=== PATIENT | male | born 1965 | race Caucasian/White ===

== ENCOUNTER 2019-02-09 16:38 | Emergency (ER) | payer BC, OTHER ==
[~2019-02-09] VITALS: Ht 182.9 cm; Wt 145.1 kg
[~2019-02-09 16:38] MED LIST: DIAZ10TA PO; HYDR-1189 PO; SOM350 PO
[2019-02-09 16:44] VITALS: BP_SYST 177
--- NOTE | 2019-02-09 16:51 | NUR ---
Patient triaged and placed in waiting room. VSS and patient appears in no acute distress at this time. Accompanied by son, awaiting available bed, and MD notified of need for MSE.
--- NOTE | 2019-02-09 16:55 | NUR ---
Patient to ER bed 05 to gown for evaluation. Side rails up. Report given to BENJAMÍN Segovia
--- NOTE | 2019-02-09 17:35 | NUR ---
ER at bedside examining patient.
[2019-02-09] MEDS ORDERED: fentaNYL CITRATE/PF 100 MCG/2 ML AMP IM ONE (17:45)
[2019-02-09] MEDS ORDERED: KETOROLAC TROMETHAMINE 60 MG/2 ML VIAL IM ONE (17:45)
[2019-02-09] MEDS ORDERED: ONDANSETRON 4 MG ODT TAB PO ONE (19:00)
--- NOTE | 2019-02-09 19:00 | NUR ---
Patient presented to ER with c/o lower back pain. Patient A&Ox4, ambulatory to ER, skin pink, afebrile. Patient states pain started 3 weeks ago but has increased over the 3 weeks. Patient states he did not have intury or trauma to back, he states he has had hx of L5 fused. 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
--- NOTE | 2019-02-09 19:10 | NUR ---
Report given to Addison BUTTS
--- NOTE | 2019-02-09 19:10 | NUR ---
No needs verbalized at this time, NAD. Family member at bedside.
[2019-02-09 19:35] VITALS: BP_SYST 154
--- NOTE | 2019-02-09 19:35 | NUR ---
Patient given written and verbal discharge instructions and verbalizes understanding. ER MD discussed with patient the results and treatment provided. Patient in stable condition. ID arm band removed. Rx of Soma, Motrin, Prednisone, [place] given. Patient educated on pain management and to follow up with PMD. Pain Scale 2/10. Opportunity for questions provided and answered. Medication side effect fact sheet provided.
== END 2019-02-09 19:35 | disposition home or self-care (01) ==
LOC: SED 16:38
DX: G89.29 Other chronic pain (principal); M54.5 Low back pain; Z90.49 Acquired absence of other specified parts of digestive tract; Z90.89 Acquired absence of other organs; Z88.6 Allergy status to analgesic agent; Z79.899 Other long term (current) drug therapy
CPT/HCPCS: 72100; 96372; 99283; J1885; J3010; Q0162; J3410

== ENCOUNTER 2020-07-07 09:22 | Day surgery (SDC) | payer BC, SELFPAY ==
[~2020-07-07] VITALS: Ht 182.9 cm; Wt 136.1 kg
[2020-07-07] MEDS ORDERED: GLYCOPYRROLATE 0.2 MG/ML VIAL ONE (11:41)
[2020-07-07] MEDS ORDERED: SIMETHICONE 40 MG/0.6 ML ML ONE (11:41)
[2020-07-07] MEDS: MEPERIDINE HCL/PF 100 MG/ML AMP ONE ×3 (11:50→12:05)
[2020-07-07] MEDS: MIDAZOLAM HCL 5 MG/5 ML VIAL ONE ×3 (11:50→11:54)
[2020-07-07 12:25] VITALS: BP_SYST 129
== END 2020-07-07 13:25 | disposition home or self-care (01) ==
LOC: SDS 09:22 → SMU 09:28 → SDS 13:25
PROVIDERS: ATTEND Colon & Rectal Surgery
DX: Z12.11 Encounter for screening for malignant neoplasm of colon (principal); K29.80 Duodenitis without bleeding; Z98.0 Intestinal bypass and anastomosis status; Z88.1 Allergy status to other antibiotic agents; Z88.5 Allergy status to narcotic agent; Z98.890 Other specified postprocedural states; Z20.828 Contact with and (suspected) exposure to other viral communicable diseases
CPT/HCPCS: 36415; 43239; 45378; 87081; 88305; 88313; J2175; J2250; J3490; J7030; U0003

== ENCOUNTER 2022-02-22 18:17 | Emergency (ER) | payer BC, MEDICAID ==
[~2022-02-22] VITALS: Ht 182.9 cm; Wt 127.0 kg
[~2022-02-22 18:17] MED LIST changes: -HYDR-1189 PO; +HYDR-3919 PO
[2022-02-22 18:30] VITALS: BP_SYST 145
--- NOTE | 2022-02-22 19:20 | NUR ---
Placed in room 3 . Placed on security monitor, blood pressure machine and pulse oximeter. To gown for exam. Side rails up.
--- NOTE | 2022-02-22 19:35 | NUR ---
Pt C/O lower abdominal pain and constipation AOX4 VSS Vrbally responsive Able to make needs known Pt resting in bed comfortably Will continue to monitor
[2022-02-22 20:13] LABS: BASOPHILS # (AUTO) 0.1 K/uL (0.0-0.2); BASOPHILS % (AUTO) 1.5 % (0.0-2.0); EOSINOPHILS # (AUTO) 0.2 K/uL (0.0-0.4); EOSINOPHILS % (AUTO) 3.8 % (0.0-4.0); HEMATOCRIT 45.3 % (36-54); HEMOGLOBIN 14.9 g/dL (14.0-18.0); LYMPHOCYTES % (AUTO) 24.4 % (20.5-51.5); MEAN CORPUSCULAR HEMOGLOBIN 28 pg (27-31); MEAN CORPUSCULAR HGB CONC 33 % (32-36); MEAN CORPUSCULAR VOLUME 85 fL (79.0-98.0); MONOCYTES # (AUTO) 0.6 K/uL (0.0-1.0); MONOCYTES % (AUTO) 16.2 % (1.7-9.3); NEUTROPHILS # (AUTO) 2.2 K/uL (1.8-7.7); NEUTROPHILS % (AUTO) 54.1 % (40.0-70.0); PLATELET COUNT (AUTO) 196 K/uL (130-430); RED BLOOD CELL COUNT(AUTO) 5.31 MIL/uL (4.2-6.2); RED CELL DISTRIBUTION WIDTH 14.8 % (9.0-15.0)
[2022-02-22 20:25] LABS: CREATININE 1.12 mg/dL (0.55-1.30)
[2022-02-22 20:36] LABS: ALBUMIN 3.6 g/dL (3.4-4.8); TOTAL BILIRUBIN 0.5 mg/dL (0.0-1.0)
[2022-02-22] MEDS ORDERED: DOCU-144 PO (20:43)
[2022-02-22] MEDS ORDERED: KETOROLAC TROMETHAMINE 60 MG/2 ML VIAL IM ONE (20:45)
[2022-02-22 21:14] VITALS: BP_SYST 130
== END 2022-02-22 21:16 | disposition home or self-care (01) ==
LOC: SED 18:17
DX: R10.84 Generalized abdominal pain (principal); K59.00 Constipation, unspecified; K64.9 Unspecified hemorrhoids; Z88.5 Allergy status to narcotic agent; Z88.6 Allergy status to analgesic agent; Z79.899 Other long term (current) drug therapy
CPT/HCPCS: 36415; 74176; 76376; 80053; 81002; 83690; 85025; 96372; 99284; J1885

== ENCOUNTER 2022-10-13 18:45 | Emergency (ER) | payer MEDICAID ==
[~2022-10-13] VITALS: Ht 182.9 cm; Wt 114.3 kg
[~2022-10-13 18:45] MED LIST changes: +DOCU-144 PO
[2022-10-13 18:53] VITALS: BP_SYST 175
[2022-10-13] MEDS ORDERED: LIDO1ADH71 TD (19:58)
[2022-10-13 20:24] VITALS: BP_SYST 156
== END 2022-10-13 20:24 | disposition home or self-care (01) ==
LOC: SED 18:45
DX: S39.012A Strain of muscle, fascia and tendon of lower back, initial encounter (principal); I10 Essential (primary) hypertension; E11.9 Type 2 diabetes mellitus without complications; Z88.5 Allergy status to narcotic agent; Z88.6 Allergy status to analgesic agent; Z79.899 Other long term (current) drug therapy; W01.0XXA Fall on same level from slipping, tripping and stumbling without subsequent striking against object, initial encounter; Y93.89 Activity, other specified; Y92.89 Other specified places as the place of occurrence of the external cause; Y99.8 Other external cause status
CPT/HCPCS: 72100-TC; 99283